=== PATIENT | female | born 1955 | race Caucasian/White ===

== ENCOUNTER 2017-08-11 18:34 | Observation (INO) | payer MEDICAID, SELFPAY ==
[2017-08-11] VITALS (7 sets, daily range): BP systolic 77–112; BP diastolic 29–89; PULSE 65–75; RESP 16–23; TEMP 36.3–36.4; O2SAT 94–99; BMI 23.1
--- NOTE | 2017-08-11 19:54 | RAD_ITS ---
XR Hip Unilateral with Pelvis when performed; 2-3 Views INDICATION: left hip pain after fall COMPARISON: None TECHNIQUE: Frontal view of the pelvis and 2 views of the left hip FINDINGS: The pelvis is intact and there is normal alignment of the SI joints and symphysis pubis. There is normal alignment at the left pelvis. A right total hip arthroplasty is noted. RAD/Hip 2-3 Views with Pelvis IMPRESSION: Pelvis and left hip are intact. Right total hip arthroplasty. at 1056 Reported and signed by: Lissa Stevens MD Electronically Signed: Lissa Stevens MD at 20:02 EDT Tel , Service support ,
--- NOTE | 2017-08-11 19:56 | ED.VISSUMM ---
- ER Visit Summary Date of Service: 08/11/17 Chief Complaint: Fall with left hip pain. History of Present Illness: The patient is a 62 F chronic pain management. Patient has a history of vertigo and has falls. She lost her balance yesterday fell in her left hip. Complaint hip pain. She has been up and ambulating.. She is on no blood thinners. He does have a history of cirrhosis and [id number] diabetes. Physical Examination: Elderly female no acute distress. Her blood pressure is low at 93/51 hours she is tolerating that well. She is afebrile. Pulse ox 90% on room air no signs of hypoxia. H EENT exam dry mucous members. Atraumatic. Face and scalp are nontender. C-spine nontender trachea midline. Lungs clear to auscultation bilaterally. Heart regular rhythm no murmur. Chest wall nontender. Abdomen soft nontender. Remedies moves all 4. Neurovascular intact. Mild p.o. P left buttock. No shortening no external rotation of the left hip. Normal range of motion. Both upper extremities right lower extremity unremarkable. Back exam nontender. Neurologically she is awake and alert with no focal motor deficits. Test Results: White count 9 H&H 1134 which is her baseline anemia. Electrolytes show CO2 of 20 normal anion gap of 14. BUN 59 creatinine at 3.24 which is significantly worse than her baseline of a normal creatinine of 1. Lactic acid 1. EKG sinus rhythm rate is 69 with no change from prior. Pelvis x-ray showed no acute fracture. Read both by myself the radiologist. Emergency Department Course and Treatment: Treated with IV fluids. Nurses were finally able to get obtain an IV in her left foot. She will be given 2 L of normal saline bolus. Treatment Plan: I spoke to the hospitalist will admit the patient for IV hydration and further evaluation of acute renal injury and dehydration. Disposition:admission Impression: Fall Acute hypotension Acute kidney injury with renal insufficiency with a creatinine of 3.24. Diarrhea Left hip contusion ED Disposition - Plan for ED Patient: Chief Complaint: Diarrhea Referrals: [facility] Doctor,Out of [NON-STAFF] -
--- NOTE | 2017-08-11 19:58 | EKG12_ITS ---
Test Reason : Blood Pressure : / mmHG Vent. Rate : 069 BPM Atrial Rate : 069 BPM P-R Int : 152 ms QRS Dur : 082 ms QT Int : 466 ms P-R-T Axes : 061 001 037 degrees QTc Int : 499 ms Normal sinus rhythm Prolonged QT Abnormal ECG Confirmed by MATTHIAS GAGE ([id number]), acquisitions editor EBONY LANCASTER ([id number] on 08/13/2017 2:22:01 PM Referred By: KEVYN Confirmed By:MATTHIAS GAGE
--- NOTE | 2017-08-11 20:43 | ED.RN ---
md aware of inability to obtain an iv or blood.rt notified of need for lab draws.
[2017-08-11 21:27] LABS: Absolute Lymphocyte Count 1.03 X10^3/ul (0.83-4.51); Basophil# 0.01 X10^3/uL; Basophil% 0.1 % (0-1); Eosinophil# 0.07 X10^3/uL; Eosinophils% 0.8 % (0-5); Hematocrit 34.3 % (37-47); Hemoglobin 11.2 g/dl (12.0-15.0); Lymphocyte # 1.03 X10^3/ul (4.0); Lymphocyte % 11.3 % (19-41); Mean Corp Hgb Conc 32.7 g/gl (32-36); Mean Corpuscular Hgb 26.7 pg (27.0-32.0); Mean Corpuscular Volume 81.9 fL (81-99); Mean Platelet Vol. 10.7 fl (6.2-12.0); Neutrophil # 6.98 X10^3/uL (2.7-7.7); Neutrophil % 76.5 % (47-70); Platelet Count 183 K/mm3 (150-450); RBC Distribution Width CV 15.7 % (11.6-14.6); RBC Distribution Width SD 46.1 fl (35.1-43.9); Red Blood Count 4.19 M/mm3 (4.2-5.4); White Blood Count 9.1 K/mm3 (4.4-11.0)
[2017-08-11 21:34] LABS: Differential Indicated SCAN CRITERIA MET; POSITIVE COUNT NO; POSITIVE DIFFERENTIAL NO; POSITIVE MORPHOLOGY YES
[2017-08-11 21:39] LABS: Anion Gap 14 (5-15); BUN 59 mg/dL (7-18); BUN/Creat Ratio 18.2 RATIO (10-20); Calcium,Total 7.9 mg/dL (8.5-10.1); Chloride 105 mmol/L (98-107); Creatinine, Serum 3.24 mg/dL (0.55-1.02); EST Glomerular Filtration Rate 15 mL/min (>60); Est Glom Filt Rate - Afr Amer 19 mL/min (>60); Estimated Creatinine Clearance 17.51 ml/min; Glucose 143 mg/dL (70-110); Potassium 3.5 mmol/L (3.5-5.1); Sodium Level 139 mmol/L (136-145)
[2017-08-11 22:17] LABS: Differential Comment SCANNED
--- NOTE | 2017-08-11 22:22 | ED.RN ---
md aware that the pt had a large emesis.
[2017-08-11] MEDS: 0.9% Normal Saline 1,000 ML 1000 ML IV (22:51)
[2017-08-12] VITALS (7 sets, daily range): BP systolic 97–110; BP diastolic 39–65; PULSE 73–86; RESP 16–18; TEMP 36.7–37.3; O2SAT 94–98; BMI 23.5
[2017-08-12 00:28] LABS: Magnesium 2.1 mg/dL (1.8-2.4); Phosphorus 5.4 mg/dL (2.5-4.9)
--- NOTE | 2017-08-12 01:08 | HP.PCM_ITS ---
Problem List (1) Diarrhea Status: Acute (2) ARF (acute renal failure) Status: Acute History of Present Illness Date of Admission: 08/12/17 Chief Complaint: found on floor The patient is a 62 year old F she reports she has pain in her left hip and left shoulder she reports she feel 2 days ago - she has vertigo she fell on the floor she reports stumbled down to left side she was found on the floor by her neighbor yesterday but she was able to get up with help ever since then she had pain in her left hip and left shoulder she did not hit her head, did not have chest pain, no sob. she reports pain in her left shoulder and left hip, Past Medical History Past Medical History (Chronic Problems): Chronic Problems Glaucoma (Chronic) Hypertension (Chronic) Type 2 diabetes mellitus (Chronic) COPD (chronic obstructive pulmonary disease) (Chronic) Depression (Chronic) Chronic pain (Chronic) Chronic back pain (Chronic) Allergies No Known Allergies Allergy (Verified 08/11/17 18:41) Home Medications: Ambulatory Orders Medication Instructions Recorded Clonazepam [Klonopin] 1 mg PO BID 11/21/13 Fluoxetine [Prozac] 40 mg PO DAILY 11/21/13 Metformin HCl [Glucophage] 1,000 mg PO BIDCM 11/21/13 Pregabalin [Lyrica] 150 mg PO BID 11/21/13 Quetiapine Fumarate [Seroquel] 400 mg PO QHS 11/21/13 Topiramate [Topamax] 25 mg PO DAILY 11/21/13 Diclofenac Sodium [Voltaren] 100 gm TOPICAL TID PRN 05/17/14 Albuterol Aerosols [Ventolin 2.5 mg INHALATION Q4H PRN PRN 01/23/15 Aerosols] BusPIRone [Buspar] 10 mg PO TID 01/23/15 CycloSPORINE Ophthalmic [Restasis 1 drop OPHTHALMIC QHS 01/23/15 Ophthalmic] Fluticasone/Salmeterol [Advair 1 puff INHALATION BID 01/23/15 250/50 Mcg Diskus] Methocarbamol [Robaxin-750] 750 mg PO BID 01/23/15 Fentanyl [Duragesic] 25 mcg TRANSDERM. Q72H 11/09/15 Fentanyl [Subsys] 1 each SL Q6H PRN PRN 11/09/15 Lisinopril/Hydrochlorothiazide 1 tablet PO DAILY 11/09/15 [Zestoretic 1012.5 Tablet] Tiotropium [place] [Spiriva 18 MCG] 1 puff INHALATION DAILY 11/09/15 Cyclobenzaprine [Flexeril] 10 mg PO TID 05/29/16 Doxycycline 100 mg PO BID #14 capsule 05/29/16 Lactulose 10 gm PO DAILY 05/29/16 Latanoprost 0.005% [Xalatan 1 drop EACH EYE QHS 05/29/16 Opthalmic] Magnesium Oxide [Magnesium] 400 mg PO DAILY 05/29/16 Moudntik 25 mg PO DAILY 05/29/16 Ranitidine [Zantac] 150 mg PO BID 05/29/16 Surgical History: appendectomy, cholecystectomy, hysterectomy, total hip arthroplasty, - - Surgery for bowel obstruction proximally 40 years ago. 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 Musculoskeletal: Reports: Joint Pain Skin: Denies: Rash Neurological: Reports: Balance problems Psychiatric: Reports: Anxiety Endocrine: Denies: Change in Body Habitus Hematologic/ Lymphatic: Denies: Adenopathy VTE Information - Inpt Only VTE Present on Admission: No Patient Problems: Active and Suspected Problems Diarrhea (Acute) ARF (acute renal failure) (Acute) - Physical Exam General: Alert, Oriented x3, - - somewhat giddy, laughing, follows commands well. HEENT: PERRLA Oral: Moist Mucosa Neck: Supple Lungs: No rhonchi, No wheeze, No rales Cardiovascular: Regular rate Abdomen: Soft, Non Tender, - - no cva tenderness Skin: No rashes Musculoskeletal: No Tenderness to Palpation of Joints or Extremities Neurological: Neuro grossly intact Psych/Mental Status: Irrational Behavior Vital Signs Temp Pulse Resp BP Pulse Ox 97.4 F 72 16 112/86 94 08/11/17 23:04 08/11/17 23:04 08/11/17 23:04 08/11/17 23:04 08/11/17 23:04 Oxygen Delivery Method Room Air Weight: 148 lb Body Mass Index (BMI) 23.1 Laboratory Tests Past 24 Hrs 08/11/17 08/11/17 08/11/17 21:10 21:10 21:10 WBC 9.1 RBC 4.19 L Hgb 11.2 L Hct 34.3 L MCV 81.9 MCH 26.7 L MCHC 32.7 RDW 15.7 H RDW Differential 46.1 H Plt Count 183 MPV 10.7 Immature Gran % (Auto) 0.300 Neut % (Auto) 76.5 H Lymph % (Auto) 11.3 L [place] % (Auto) 11.0 H Eos % (Auto) 0.8 Baso % (Auto) 0.1 Absolute Neuts (auto) 7.0 Absolute Lymphs (auto) 1.03 Total Counted Not Reportable Differential Comment SCANNED Sodium 139 Potassium 3.5 Chloride 105 Carbon Dioxide 20.0 L Anion Gap 14 BUN 59 H Creatinine 3.24 H Estim Creat Clear Calc 17.51 Est GFR (MDRD) Af Amer 19 L Est GFR (MDRD) Non-Af 15 L BUN/Creatinine Ratio 18.2 Glucose 143 H Lactic Acid 1.0 Calcium 7.9 L Phosphorus Magnesium 08/11/17 21:10 WBC RBC Hgb Hct MCV MCH MCHC RDW RDW Differential Plt Count MPV Immature Gran % (Auto) Neut % (Auto) Lymph % (Auto) [place] % (Auto) Eos % (Auto) Baso % (Auto) Absolute Neuts (auto) Absolute Lymphs (auto) Total Counted Differential Comment Sodium Potassium Chloride Carbon Dioxide Anion Gap BUN Creatinine Estim Creat Clear Calc Est GFR (MDRD) Af Amer Est GFR (MDRD) Non-Af BUN/Creatinine Ratio Glucose Lactic Acid Calcium Phosphorus 5.4 H Magnesium 2.1 Assessment/Plan Active and Suspected Problems Diarrhea (Acute) ARF (acute renal failure) (Acute) 62-year-old who reports difficulty with balance and vertigo at times and having nausea she reports she fell in her home had pain on the left side of her body and was down on the ground Actually found by her neighbor not right before coming in but 1 day before coming in Do not eat or drink much during that time Since then had problems ambulating and now presents with acute renal failure This is likely due to dehydration and poor p.o. intake #1 acute renal failure 2 patient reported diarrhea loose stools C. difficile and enteric pathogen panel will be ordered I am not aware that she has had any stools here in the emergency room Abdominal exam does not show any significant tenderness #3. Patient has a history of COPD we will give her as needed breathing treatment #4. Patient reported some nausea with the dizziness but currently she does not have any nausea or abdominal pain will resume p.o. diet #5 pain control She has a fentanyl patch on the back she says does not work Reported pain in multiple areas she has good mobility of all her joints on exam no specific areas of spinal tenderness likely soft tissue pain due to falling She did have x-rays of her pelvis and hips in the emergency room no sign of fractures continue her fentanyl patch provide her with other alternative pain control #6. We will continue her Klonopin and BuSpar for anxiety patient may have missed some of her Klonopin some of her additionally giddy behavior could mean that she might be withdrawing 1 dose of her Klonopin will be given now #7. Continue eyedrops for glaucoma #8. Cover with sliding scale insulin admission sugar is normal Patient will have her Metformin held due to the acute renal failure above
[2017-08-12] MEDS: 0.9% Normal Saline 1,000 ML 999 ML IV (02:58)
[2017-08-12] MEDS: clonazePAM 1 MG Tablet PO ×3 (03:58→21:48)
[2017-08-12] MEDS: 0.9% Normal Saline 1,000 ML 200 ML IV ×4 (05:18→22:41)
[2017-08-12] MEDS: 0.9% NaCl Peripheral Flush Adult/Peds IV (05:18)
[2017-08-12 07:36] LABS: Bedside Glucose 119 mg/dL (70-110)
--- NOTE | 2017-08-12 07:57 | PCM.PN.HOSP ---
Patient Problems: Active and Suspected Problems ARF (acute renal failure) (Acute) Diarrhea (Acute) Subjective: 62-year-old female past medical history of chronic pain, hypertension, anxiety disorder, psychiatric diagnoses including schizophrenia and bipolar admitted on 08/11/2017 with diarrhea and vomiting. History of recent fall at home with left hip contusion. Complains of pain in the left hip, no diarrhea since admission. Denied any fever or chills. Admits to not drinking enough water; sees I hate drinking water Objective: Physical Exam General: Alert, Oriented x3, not pale, no jaundice, appropriate affect HEENT: PERRLA Oral: Dry mucosa Neck: Supple Lungs: No rhonchi, No wheeze, No rales Cardiovascular: Regular rate Abdomen: Soft, Non Tender, bowel sounds present and normal Skin: No rashes Musculoskeletal: No Tenderness to Palpation of Joints or Extremities Neurological: Neuro grossly intact Psych/Mental Status: Reactive, appropriate affect Vitals/I&O's: Vital Signs Temp Pulse Resp BP Pulse Ox 98.6 F 73 18 97/39 95 08/12/17 03:33 08/12/17 03:33 08/12/17 03:33 08/12/17 03:33 08/12/17 07:20 Oxygen Delivery Method Room Air Weight: 68.1 kg Body Mass Index (BMI) 23.5 Intake and Output for Last 24 Hours 08/10/17 08/11/17 08/12/17 23:59 23:59 23:59 Intake Total 1507 Balance 1507 Laboratory Results 08/12/17 06:40: POC Glucose 119 H Current Medications Buspirone HCl (Buspar) 10 mg PO TID [facility] Last Admin: 08/12/17 05:18 Dose: 10 mg Clonazepam (Klonopin) 1 mg PO BID [facility] Cyclobenzaprine HCl (Flexeril) 10 mg PO TID PRN PRN Dextrose (D50w Syringe) 0 gm IV X1 PRN; Protocol PRN Reason: Hypoglycemia Famotidine (Pepcid) 20 mg PO BID [facility] Fentanyl (Duragesic) 25 mcg TRANSDERM. Q72H [facility] Fentanyl Citrate (Sublimaze) 50 mcg IV Q2H PRN PRN PRN Reason: PAIN Glucagon () 1 mg IM .X1 PRN PRN Reason: Hypoglycemia Sodium Chloride () 1,000 mls @ 200 mls/hr IV .Q5H [facility] Last Admin: 08/12/17 05:18 Dose: 200 mls/hr Influenza Virus Vaccine Quadrival (Fluarix/Fluzone) 0.5 ml IM .ONCE ONE Stop: 08/12/17 10:01 Insulin Aspart (Novolog Flexpen (Bkc)) 0 units SC ACHS [facility] PRN Reason: Protocol Last Admin: 08/12/17 06:52 Dose: Not Given Lactulose (Chronulac, Cephulac) 10 gm PO DAILY [facility] Latanoprost (Xalatan Opthalmic) 1 drop EACH EYE QHS [facility] Ondansetron HCl (Zofran) 4 mg IV Q6H PRN PRN PRN Reason: Nausea Pregabalin (Lyrica) 150 mg PO BID [facility] Quetiapine Fumarate (Seroquel) 400 mg PO QHS [facility] Sodium Chloride () 5 - 30 ml IV UD PRN PRN Reason: SALINE FLUSH Last Admin: 08/12/17 05:18 Dose: 10 ml Assessment/Plan Active and Suspected Problems ARF (acute renal failure) (Acute) Diarrhea (Acute) 1. Acute kidney injury due to dehydration/diarrhea, on IV fluids, admitting creatinine was 3.24, baseline creatinine is 1.05 ,repeat blood work, some of the kidneys and bladder 2. Recent history of diarrhea, resolved 3. COPD, not in acute exacerbation 4. Recurrent falls likely related to medication side effect versus orthostatic hypotension, on IV fluids, will check orthostatic vitals 5. Chronic pain syndrome, on fentanyl patch, Flexeril, Lyrica 6. Multiple psychiatric diagnoses including anxiety/depression/schizoaffective disorder, on Klonopin, BuSpar, Prozac, Seroquel, Topamax 7. Type 2 diabetes, metformin on hold on account of high, continues on sliding scale, check HbA1c 8. Left hip pain status post fall, history of the pelvis shows no fractures, continue on pain medication 9. DVT prophylaxis with heparin subcu
--- NOTE | 2017-08-12 08:01 | US_ITS ---
US Kidney(s) complete (eg, kidneys T bladder) INDICATION: ARF COMPARISON: None TECHNIQUE: Ultrasonographic grayscale, Doppler and duplex investigation of the retroperitoneum including kidneys and urinary bladder. FINDINGS: The right kidney measures 12.4 cm in length and is without evidence of hydronephrosis, cyst, or shadowing calculus. The left kidney measures 10 cm in length and is without evidence of hydronephrosis, cyst, or shadowing calculus. The urinary bladder is nondistended and contains 43 mL of urine at the time of the scan. US/Kidney and Bladder IMPRESSION: Negative retroperitoneal ultrasound. at 2005 Reported and signed by: Lissa Stevens MD Electronically Signed: Lissa Stevens MD at 19:04 EDT Tel , Service support ,
--- NOTE | 2017-08-12 08:05 | PN_ITS ---
Patient Problems: Active and Suspected Problems ARF (acute renal failure) (Acute) Diarrhea (Acute) Subjective: 62-year-old female past medical history of chronic pain, hypertension, anxiety disorder, psychiatric diagnoses including schizophrenia and bipolar admitted on 08/11/2017 with diarrhea and vomiting. History of recent fall at home with left hip contusion. Complains of pain in the left hip, no diarrhea since admission. Denied any fever or chills. Admits to not drinking enough water; sees I hate drinking water Objective: Physical Exam General: Alert, Oriented x3, not pale, no jaundice, appropriate affect HEENT: PERRLA Oral: Dry mucosa Neck: Supple Lungs: No rhonchi, No wheeze, No rales Cardiovascular: Regular rate Abdomen: Soft, Non Tender, bowel sounds present and normal Skin: No rashes Musculoskeletal: No Tenderness to Palpation of Joints or Extremities Neurological: Neuro grossly intact Psych/Mental Status: Reactive, appropriate affect Vitals/I&O's: Vital Signs Temp Pulse Resp BP Pulse Ox 98.6 F 73 18 97/39 95 08/12/17 03:33 08/12/17 03:33 08/12/17 03:33 08/12/17 03:33 08/12/17 07:20 Oxygen Delivery Method Room Air Weight: 68.1 kg Body Mass Index (BMI) 23.5 Intake and Output for Last 24 Hours 08/10/17 08/11/17 08/12/17 23:59 23:59 23:59 Intake Total 1507 Balance 1507 Laboratory Results 08/12/17 06:40: POC Glucose 119 H Current Medications Buspirone HCl (Buspar) 10 mg PO TID [facility] Last Admin: 08/12/17 05:18 Dose: 10 mg Clonazepam (Klonopin) 1 mg PO BID [facility] Cyclobenzaprine HCl (Flexeril) 10 mg PO TID PRN PRN Dextrose (D50w Syringe) 0 gm IV X1 PRN; Protocol PRN Reason: Hypoglycemia Famotidine (Pepcid) 20 mg PO BID [facility] Fentanyl (Duragesic) 25 mcg TRANSDERM. Q72H [facility] Fentanyl Citrate (Sublimaze) 50 mcg IV Q2H PRN PRN PRN Reason: PAIN Glucagon () 1 mg IM .X1 PRN PRN Reason: Hypoglycemia Sodium Chloride () 1,000 mls @ 200 mls/hr IV .Q5H [facility] Last Admin: 08/12/17 05:18 Dose: 200 mls/hr Influenza Virus Vaccine Quadrival (Fluarix/Fluzone) 0.5 ml IM .ONCE ONE Stop: 08/12/17 10:01 Insulin Aspart (Novolog Flexpen (Bkc)) 0 units SC ACHS [facility] PRN Reason: Protocol Last Admin: 08/12/17 06:52 Dose: Not Given Lactulose (Chronulac, Cephulac) 10 gm PO DAILY [facility] Latanoprost (Xalatan Opthalmic) 1 drop EACH EYE QHS [facility] Ondansetron HCl (Zofran) 4 mg IV Q6H PRN PRN PRN Reason: Nausea Pregabalin (Lyrica) 150 mg PO BID [facility] Quetiapine Fumarate (Seroquel) 400 mg PO QHS [facility] Sodium Chloride () 5 - 30 ml IV UD PRN PRN Reason: SALINE FLUSH Last Admin: 08/12/17 05:18 Dose: 10 ml Assessment/Plan Active and Suspected Problems ARF (acute renal failure) (Acute) Diarrhea (Acute) 1. Acute kidney injury due to dehydration/diarrhea, on IV fluids, admitting creatinine was 3.24, baseline creatinine is 1.05 ,repeat blood work, some of the kidneys and bladder 2. Recent history of diarrhea, resolved 3. COPD, not in acute exacerbation 4. Recurrent falls likely related to medication side effect versus orthostatic hypotension, on IV fluids, will check orthostatic vitals 5. Chronic pain syndrome, on fentanyl patch, Flexeril, Lyrica 6. Multiple psychiatric diagnoses including anxiety/depression/schizoaffective disorder, on Klonopin, BuSpar, Prozac, Seroquel, Topamax 7. Type 2 diabetes, metformin on hold on account of high, continues on sliding scale, check HbA1c 8. Left hip pain status post fall, history of the pelvis shows no fractures, continue on pain medication 9. DVT prophylaxis with heparin subcu
[2017-08-12] MEDS: Magnesium Oxide 400 MG Tablet PO (09:31)
[2017-08-12] MEDS: Famotidine 20 MG Tablet PO ×2 (09:31→21:51)
[2017-08-12] MEDS: Pregabalin 75 MG Capsule 150 MG PO ×2 (09:31→21:55)
[2017-08-12] MEDS: FLUoxetine 20 MG Capsule 40 MG PO (09:31)
--- NOTE | 2017-08-12 09:45 | NURSING ---
Called Dr. Mcdaniels's office, stated they will fax over med list.
--- NOTE | 2017-08-12 11:25 | CASEMGMT ---
Social Work In to see pt and pt requests that SW come back later as she states, I need to rest. SW to return at a later time. Isela Agosto, [employer]LLY[employer] SUPER[employer]UCATION
[2017-08-12 11:56] LABS: Bedside Glucose 179 mg/dL (70-110)
[2017-08-12] MEDS: Ipratropium 0.5 MG/2.5 ML SOLUTION INHALATION (13:19)
[2017-08-12] MEDS: Albuterol 2.5 MG/3 ML VIAL.NEB. INHALATION (13:19)
[2017-08-12 17:10] LABS: Bedside Glucose 168 mg/dL (70-110)
[2017-08-12] MEDS: Budesonide Respules 0.5 MG/2 ML AMPUL.NEB. INHALATION (19:04)
[2017-08-12] MEDS: Ipratropium/Albuterol Sulfate 3 ML AMPUL.NEB INHALATION (19:04)
[2017-08-12] MEDS: Latanoprost 0.005% 1 Bottle 1 DRP EACH EYE (21:50)
[2017-08-12] MEDS: QUEtiapine 100 MG Tablet 400 MG PO (21:51)
[2017-08-12] MEDS: Topiramate 25 MG Tablet PO (21:51)
[2017-08-12 22:41] LABS: Bedside Glucose 200 mg/dL (70-110)
[2017-08-13 02:48] VITALS: BP 104/58; PULSE 74; RESP 20; TEMP 36.9; O2SAT 96
[2017-08-13] MEDS: 0.9% Normal Saline 1,000 ML 200 ML IV (04:27)
[2017-08-13 06:15] LABS: Bedside Glucose 148 mg/dL (70-110)
[2017-08-13 06:55] VITALS: PULSE 120; RESP 20; O2SAT 93
[2017-08-13] MEDS: Ipratropium/Albuterol Sulfate 3 ML AMPUL.NEB INHALATION (06:55)
[2017-08-13] MEDS: Budesonide Respules 0.5 MG/2 ML AMPUL.NEB. INHALATION (06:55)
--- NOTE | 2017-08-13 07:26 | NURSING ---
fentanyl 25mcg patch removed from patient's lower back as order discontinued at patient's request. MICHELLE Amaya witnessed flushing patch down toilet.
--- NOTE | 2017-08-13 08:06 | PN_ITS ---
Patient Problems: Active and Suspected Problems ARF (acute renal failure) (Acute) Diarrhea (Acute) Subjective: Patient seen and examined. Complains of pain in her left hip and low back. Moving out of bed much. Been on IV fluids. Denies any fever or chills. Does not want to have fentanyl patch because she feels that is not helping. Objective: Physical Exam General: Alert, Oriented x3, not pale, no jaundice, appropriate affect HEENT: PERRLA Oral: Moist mucosa Neck: Supple Lungs: No rhonchi, No wheeze, No rales Cardiovascular: Regular rate Abdomen: Soft, Non Tender, bowel sounds present and normal Skin: No rashes Musculoskeletal: Tenderness over the left hip otherwise normal Neurological: Neuro grossly intact Psych/Mental Status: Reactive, appropriate affect Vitals/I&O's: Vital Signs Temp Pulse Resp BP Pulse Ox 98.5 F 120 20 104/58 93 08/13/17 02:48 08/13/17 06:55 08/13/17 06:55 08/13/17 02:48 08/13/17 06:55 Oxygen Delivery Method Room Air Weight: 68.1 kg Body Mass Index (BMI) 23.5 Intake and Output for Last 24 Hours 08/11/17 08/12/17 08/13/17 23:59 23:59 23:59 Intake Total 4247 2975 Output Total 1050 Balance 4247 1925 Microbiology Past 72 Hours 08/12/17 09:30 Stool C. difficile DNA Amplification - Final Laboratory Results 08/12/17 09:40: Sodium Cancelled, Potassium Cancelled, Chloride Cancelled, Carbon Dioxide Cancelled, Anion Gap Cancelled, BUN Cancelled, Creatinine Cancelled, Estim Creat Clear Calc Cancelled, Est GFR (MDRD) Af Amer Cancelled, Est GFR (MDRD) Non-Af Cancelled, BUN/Creatinine Ratio Cancelled, Glucose Cancelled, Calcium Cancelled, Troponin I Cancelled 08/12/17 11:52: POC Glucose 179 H 08/12/17 17:02: POC Glucose 168 H 08/12/17 21:44: POC Glucose 200 H 08/13/17 06:09: POC Glucose 148 H 08/13/17 07:20: Urine Color Pending, Urine Clarity Pending, Urine pH Pending, Ur Specific Ulen Pending, Urine Protein Pending, Urine Glucose (UA) Pending, Urine Ketones Pending, Urine Occult Blood Pending, Urine Nitrite Pending, Urine Bilirubin Pending, Urine Urobilinogen Pending, Ur Leukocyte Esterase Pending Current Medications Albuterol Sulfate (Ventolin Aerosols) 2.5 mg INHALATION Q4H PRN PRN PRN Reason: SOB &/OR WHEEZING Albuterol/Ipratropium (Duoneb) 3 ml INHALATION Q6HWA.RT [facility] Last Admin: 08/13/17 06:55 Dose: 3 ml Budesonide (Pulmicort Aerosol) 0.5 mg INHALATION Q12H.RT [facility] Last Admin: 08/13/17 06:55 Dose: 0.5 mg Buspirone HCl (Buspar) 10 mg PO TID [facility] Last Admin: 08/13/17 06:27 Dose: 10 mg Clonazepam (Klonopin) 1 mg PO BID [facility] Last Admin: 08/12/17 21:48 Dose: 1 mg Cyclobenzaprine HCl (Flexeril) 10 mg PO TID PRN PRN Last Admin: 08/12/17 19:59 Dose: 10 mg Cyclosporine (Restasis Ophthalmic) 1 drop OPHTHALMIC QHS [facility] Dextrose (D50w Syringe) 0 gm IV X1 PRN; Protocol PRN Reason: Hypoglycemia Famotidine (Pepcid) 20 mg PO BID [facility] Last Admin: 08/12/17 21:51 Dose: 20 mg Fluoxetine HCl (Prozac) 40 mg PO DAILY [facility] Last Admin: 08/12/17 09:31 Dose: 40 mg Glucagon () 1 mg IM .X1 PRN PRN Reason: Hypoglycemia Heparin Sodium (Porcine) () 5,000 units SC BID [facility] Last Admin: 08/12/17 21:47 Dose: Not Given Sodium Chloride () 1,000 mls @ 200 mls/hr IV .Q5H [facility] Last Admin: 08/13/17 04:27 Dose: 200 mls/hr Insulin Aspart (Novolog Flexpen (Bkc)) 0 units SC ACHS [facility] PRN Reason: Protocol Last Admin: 08/13/17 06:27 Dose: Not Given Latanoprost (Xalatan Opthalmic) 1 drop EACH EYE QHS [facility] Last Admin: 08/12/17 21:50 Dose: 1 unit Magnesium Oxide (Mag-Ox 400) 400 mg PO DAILY [facility] Last Admin: 08/12/17 09:31 Dose: 400 mg Ondansetron HCl (Zofran) 4 mg IV Q6H PRN PRN PRN Reason: Nausea Pregabalin (Lyrica) 150 mg PO BID [facility] Last Admin: 08/12/17 21:55 Dose: 150 mg Quetiapine Fumarate (Seroquel) 400 mg PO QHS [facility] Last Admin: 08/12/17 21:51 Dose: 400 mg Sodium Chloride () 5 - 30 ml IV UD PRN PRN Reason: SALINE FLUSH Last Admin: 08/12/17 05:18 Dose: 10 ml Topiramate (Topamax) 25 mg PO DAILY@2200 [facility] Last Admin: 08/12/17 21:51 Dose: 25 mg Assessment/Plan Active and Suspected Problems ARF (acute renal failure) (Acute) Diarrhea (Acute) 62-year-old female with past medical history of chronic pain, hypertension, anxiety disorder, multiple psychiatric diagnoses including schizophrenia and bipolar admitted on 08/11/2017 with diarrhea and vomiting. No diarrhea or vomiting noted since being admitted. History of recurrent falls; Recent fall at home with left hip contusion. X-rays of the pelvis and hip done in the ER were negative. 1. Acute kidney injury due to dehydration/recent diarrhea, admitting creatinine was 3.24, creatinine is back to normal. ultrasound of kidney and bladder was normal, continue IV fluids at 50 cc/min, encouraged to taking liberal fluids 2. Recurrent falls likely related to medication side effect versus orthostatic hypotension, on IV fluids, will recheck orthostatic hypotension 3. COPD, not in acute exacerbation 4. Chronic pain syndrome, on fentanyl patch, Flexeril, Lyrica 5. Multiple psychiatric diagnoses including anxiety/depression/schizoaffective disorder, on Klonopin, BuSpar, Prozac, Seroquel, Topamax 6. Type 2 diabetes, metformin on hold on account of WILFREDO, on sliding scale, HbA1c is pending, will start on tradjenta. 7. Left hip pain status post fall, history of the pelvis shows no fractures, continue on pain medication 8. DVT prophylaxis with heparin subcu 9. Disposition: Waiting on PT and OT evaluation to determine disposition
[2017-08-13 08:11] LABS: Color, Urine Yellow (Yellow); Glucose, Dipstick Normal (Normal); Ketone-Dipstick Negative (Negative); Leukocyte Esterase-Dipstick 25 /ul (Negative); Nitrite-Dipstick Negative (Negative); Occult Blood-Urine Negative /ul (Negative); Protein-Dipstick Negative (Negative); Urine Bilirubin Dipstick Negative (Negative); Urine Clarity Clear (Clear); Urine Urobilinogen Normal (Normal)
[2017-08-13 08:30] LABS: Absolute Lymphocyte Count 1.48 X10^3/ul (0.83-4.51); Basophil# 0.01 X10^3/uL; Basophil% 0.3 % (0-1); Eosinophil# 0.08 X10^3/uL; Eosinophils% 2.1 % (0-5); Hematocrit 28.1 % (37-47); Lymphocyte # 1.48 X10^3/ul (4.0); Lymphocyte % 38.3 % (19-41); Mean Corpuscular Hgb 26.6 pg (27.0-32.0); Mean Corpuscular Volume 83.1 fL (81-99); Mean Platelet Vol. 10.5 fl (6.2-12.0); Monocyte# 0.31 X10^3/uL; Neutrophil # 1.96 X10^3/uL (2.7-7.7); Neutrophil % 50.8 % (47-70); Platelet Count 104 K/mm3 (150-450); RBC Distribution Width CV 16.1 % (11.6-14.6); RBC Distribution Width SD 48.7 fl (35.1-43.9); Red Blood Count 3.38 M/mm3 (4.2-5.4); White Blood Count 3.9 K/mm3 (4.4-11.0)
[2017-08-13 08:31] LABS: POSITIVE COUNT NO; POSITIVE DIFFERENTIAL NO; POSITIVE MORPHOLOGY NO
[2017-08-13 08:41] LABS: International Normalized Ratio 1.1; Prothrombin Time (Protime)PT. 13.8 SECONDS (11.7-14.9)
[2017-08-13 08:42] LABS: Partial Thromboplast Time 31.4 Seconds (24.1-36.2)
[2017-08-13 08:50] LABS: ALB/GLOB Ratio 0.5 RATIO (0.9-2.4); AST(SGOT) 146 U/L (15-37); Alanine Aminotransfer ALT/SGPT 84 U/L (12-78); Alkaline Phosphatase 85 U/L (45-117); Anion Gap 8 (5-15); BUN 25 mg/dL (7-18); BUN/Creat Ratio 30.9 RATIO (10-20); Calcium,Total 7.2 mg/dL (8.5-10.1); Chloride 109 mmol/L (98-107); Creatinine, Serum 0.81 mg/dL (0.55-1.02); EST Glomerular Filtration Rate 76 mL/min (>60); Est Glom Filt Rate - Afr Amer 92 mL/min (>60); Estimated Creatinine Clearance 70.03 ml/min; Globulin 3.9 g/dL (2.3-3.5); Glucose 138 mg/dL (70-110); Potassium 3.1 mmol/L (3.5-5.1); Protein, Total 5.9 g/dL (6.4-8.2); Sodium Level 141 mmol/L (136-145)
[2017-08-13 09:10] LABS: Anion Gap 8 (5-15); BUN 25 mg/dL (7-18); BUN/Creat Ratio 30.4 RATIO (10-20); Calcium,Total 7.4 mg/dL (8.5-10.1); Chloride 109 mmol/L (98-107); Creatinine, Serum 0.82 mg/dL (0.55-1.02); EST Glomerular Filtration Rate 75 mL/min (>60); Est Glom Filt Rate - Afr Amer 90 mL/min (>60); Estimated Creatinine Clearance 69.17 ml/min; Glucose 137 mg/dL (70-110); Potassium 3.1 mmol/L (3.5-5.1); Sodium Level 141 mmol/L (136-145)
[2017-08-13] MEDS: FLUoxetine 20 MG Capsule 40 MG PO (09:10)
[2017-08-13] MEDS: Pregabalin 75 MG Capsule 150 MG PO (09:10)
[2017-08-13] MEDS: clonazePAM 1 MG Tablet PO (09:10)
[2017-08-13] MEDS: Magnesium Oxide 400 MG Tablet PO (09:11)
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
[2017-08-13] MEDS: Pantoprazole Sodium 40 MG Tablet PO (09:16)
[2017-08-13 09:27] VITALS: BP 137/64; PULSE 73; RESP 18; TEMP 36.5; O2SAT 97
--- NOTE | 2017-08-13 09:43 | CASEMGMT ---
Social Work Call from Jeniffer at [facility] stating that the pt has a nurse 2x/week and an aide 3x/week. P: [phone] and F: [phone]. Green sheet placed on chart in anticipation of weekend discharge. Faxed initial referral with order for [facility] and updated of anticipated weekend discharge. SW to continue to follow and assist as needed. Plan: Home with [facility]. Isela Agosto MSW CARE ASSOCIATE
[2017-08-13] MEDS: Methimazole 5 MG Tablet 10 MG PO (10:35)
[2017-08-13 11:36] LABS: Bedside Glucose 179 mg/dL (70-110)
--- NOTE | 2017-08-13 11:45 | CASEMGMT ---
Social Work Call from physician with concerns of her returning home d/t hx of falls and coming to the ED with left sided weakness. Inform that pt did not want to go to SNF, but SW will revisit topic. In to speak with pt and she declines SNF placement. Offer to setup PT/OT through her home health care services and she declines. Pt becomes rude throughout conversation and SW addresses this with the pt. Pt begins yelling at SW and stating to, just set it up, you're going to do whatever ya want anyways. Inform the pt that SW cannot setup without her consent, because it is her decision. Pt again declines. Becomes tearful and states that when she broke her leg there were too many people in her home and they walked around like they owned the place. Discuss that SW will ensure that her current services are restarted and pt again begins raising her voice, that's already been done, I don't need your help. Educate the pt that although her agency intends on taking her back there are certain orders that need placed by the hospital before they can be resumed. Leave pt to eat her lunch. Green sheet will be left on chart for resumption of home care services at discharge. NICKY Heredia BID MANAGER
[2017-08-13] MEDS: 0.9% Normal Saline 1,000 ML 75 ML IV (12:21)
[2017-08-13 13:16] LABS: Hemoglobin A1c 6.4 % (4.2-6.3)
[2017-08-13 14:08] VITALS: BP 124/65; PULSE 77; RESP 20; TEMP 37.1; O2SAT 95
[2017-08-13] MEDS: LINAGLIPTIN 5 MG TABLET PO (14:49)
--- NOTE | 2017-08-13 15:19 | PCM.DC ---
- Discharge Diagnoses Current Active Problems: Current Active and Chronic Problems ARF (acute renal failure) (Acute) Diarrhea (Acute) Reason(s) for Visit for Discharge Instructions: Fall with left hip pain You will use the following diet at home:: Calorie/Carbohydrate Controlled (specify 1200, 1400, etc), Cardiac Your food should be the consistency of: Regular Your liquids should be the consistency of: Regular/Thin Discharge Activity: Return to Normal Activity Additional Instructions: Please make sure that you are drinking lots of water. Allergies/Adverse Reactions: Allergies No Known Allergies Allergy (Verified 08/11/17 18:41) Medications to take at Discharge Clonazepam [Klonopin] 1 mg PO BID 11/21/13 Fluoxetine [Prozac] 40 mg PO DAILY 11/21/13 Pregabalin [Lyrica] 150 mg PO BID 11/21/13 Quetiapine Fumarate [Seroquel] 400 mg PO QHS 11/21/13 Topiramate [Topamax] 25 mg PO DAILY 11/21/13 Diclofenac Sodium [Voltaren] 100 gm TOPICAL BID 05/17/14 Albuterol Aerosols [Ventolin Aerosols] 2.5 mg INHALATION Q4H PRN PRN 01/23/15 BusPIRone [Buspar] 10 mg PO TID 01/23/15 CycloSPORINE Ophthalmic [Restasis Ophthalmic] 1 drop OPHTHALMIC BID 01/23/15 Fluticasone/Salmeterol [Advair 250/50 Mcg Diskus] 1 puff INHALATION BID 01/23/15 Methocarbamol [Robaxin-750] 750 mg PO BID 01/23/15 Fentanyl [Duragesic] 25 mcg TRANSDERM. Q72H 11/09/15 Tiotropium [place] [Spiriva 18 MCG] 1 puff INHALATION DAILY 11/09/15 Lactulose 10 gm PO DAILY 05/29/16 Latanoprost 0.005% [Xalatan Opthalmic] 1 drop EACH EYE QHS 05/29/16 Magnesium Oxide [Magnesium] 400 mg PO DAILY 05/29/16 Moudntik 25 mg PO DAILY 05/29/16 Haloperidol [Haldol] 2 mg PO QHS PRN PRN 08/12/17 Melatonin 8 mg PO QHS 08/12/17 Methimazole 10 mg PO DAILY 08/12/17 Omeprazole [Prilosec] 40 mg PO DAILY 08/12/17 Ondansetron [Zofran] 8 mg PO Q8H PRN PRN 08/12/17 Zolpidem Tartrate [Ambien] 10 mg PO QHS 08/12/17 Linagliptin [Tradjenta] 5 mg PO DAILY #30 tablet 08/13/17 The following prescriptions were given: Linagliptin [Tradjenta] 5 mg PO DAILY #30 tablet Orders to be completed after discharge: Basic Metabolic Profile (BMP) Time Frame: 3 Days, Location: Determined By Patient Primary Care Physician: [facility] Doctor,Out of [NON-STAFF] - Please follow up with your Primary Care Physician in: within 1 week to have blood work done Proposed Discharge Date: 08/13/17
--- NOTE | 2017-08-13 15:23 | DCINST_ITS ---
- Discharge Diagnoses Current Active Problems: Current Active and Chronic Problems ARF (acute renal failure) (Acute) Diarrhea (Acute) Reason(s) for Visit for Discharge Instructions: Fall with left hip pain You will use the following diet at home:: Calorie/Carbohydrate Controlled ( specify 1200, 1400, etc), Cardiac Your food should be the consistency of: Regular Your liquids should be the consistency of: Regular/Thin Discharge Activity: Return to Normal Activity Additional Instructions: Please make sure that you are drinking lots of water. Allergies/Adverse Reactions: Allergies No Known Allergies Allergy (Verified 08/11/17 18:41) Medications to take at Discharge Clonazepam [Klonopin] 1 mg PO BID 11/21/13 Fluoxetine [Prozac] 40 mg PO DAILY 11/21/13 Pregabalin [Lyrica] 150 mg PO BID 11/21/13 Quetiapine Fumarate [Seroquel] 400 mg PO QHS 11/21/13 Topiramate [Topamax] 25 mg PO DAILY 11/21/13 Diclofenac Sodium [Voltaren] 100 gm TOPICAL BID 05/17/14 Albuterol Aerosols [Ventolin Aerosols] 2.5 mg INHALATION Q4H PRN PRN 01/23/15 BusPIRone [Buspar] 10 mg PO TID 01/23/15 CycloSPORINE Ophthalmic [Restasis Ophthalmic] 1 drop OPHTHALMIC BID 01/23/15 Fluticasone/Salmeterol [Advair 250/50 Mcg Diskus] 1 puff INHALATION BID Methocarbamol [Robaxin-750] 750 mg PO BID 01/23/15 Fentanyl [Duragesic] 25 mcg TRANSDERM. Q72H 11/09/15 Tiotropium [place] [Spiriva 18 MCG] 1 puff INHALATION DAILY 11/09/15 Lactulose 10 gm PO DAILY 05/29/16 Latanoprost 0.005% [Xalatan Opthalmic] 1 drop EACH EYE QHS 05/29/16 Magnesium Oxide [Magnesium] 400 mg PO DAILY 05/29/16 Moudntik 25 mg PO DAILY 05/29/16 Haloperidol [Haldol] 2 mg PO QHS PRN PRN 08/12/17 Melatonin 8 mg PO QHS 08/12/17 Methimazole 10 mg PO DAILY 08/12/17 Omeprazole [Prilosec] 40 mg PO DAILY 08/12/17 Ondansetron [Zofran] 8 mg PO Q8H PRN PRN 08/12/17 Zolpidem Tartrate [Ambien] 10 mg PO QHS 08/12/17 Linagliptin [Tradjenta] 5 mg PO DAILY #30 tablet 08/13/17 The following prescriptions were given: Linagliptin [Tradjenta] 5 mg PO DAILY #30 tablet Orders to be completed after discharge: Basic Metabolic Profile (BMP) Time Frame: 3 Days, Location: Determined By Patient Primary Care Physician: [facility] Doctor,Out of [NON-STAFF] - Please follow up with your Primary Care Physician in: within 1 week to have blood work done Proposed Discharge Date: 08/13/17
--- NOTE | 2017-08-13 15:23 | PCM.DC.SUM ---
Discharge Date and Diagnosis - Problem List Patient Problems: Active and Suspected Problems ARF (acute renal failure) (Acute) Diarrhea (Acute) Date of Admission: 08/12/17 Date of Discharge: 08/13/17 - Primary Discharge Diagnosis Active and Suspected Problems ARF (acute renal failure) (Acute) Diarrhea (Acute) - Secondary Discharge Diagnosis Chronic Problems COPD (chronic obstructive pulmonary disease) (Chronic) Chronic back pain (Chronic) Chronic pain (Chronic) Depression (Chronic) Glaucoma (Chronic) Hypertension (Chronic) Type 2 diabetes mellitus (Chronic) Hospital Course and Treatment Imaging Results: Clinical Impression(s) from Imaging Studies Renal Ultrasound 08/12/17 08:01 IMPRESSION: Negative retroperitoneal ultrasound. at 2005 Reported and signed by: Lissa Stevens MD Electronically Signed: Lissa Stevens MD at 19:04 EDT Tel , Service support , None Operations: None Procedures: None Summary of Care Provided: 62-year-old female with past medical history of chronic pain, hypertension, anxiety disorder, multiple psychiatric diagnoses including schizophrenia and bipolar admitted on 08/11/2017 with diarrhea and vomiting. No diarrhea or vomiting noted since being admitted. History of recurrent falls; Recent fall at home with left hip contusion. X-rays of the pelvis and hip done in the ER were negative. 1. Acute kidney injury due to dehydration/recent diarrhea, admitting creatinine was 3.24, creatinine is back to normal. ultrasound of kidney and bladder was normal,will need to continue to hydrate herself. Follow-up with PCP to have repeat blood work done in 3 days 2. Recurrent falls likely related to medication side effect /orthostatic hypotension from dehydration 3. COPD, not in acute exacerbation 4. Chronic pain syndrome, on fentanyl patch, Lyrica. Medication changes with help from Pharmacy; Flexeril has been stopped. 5. Multiple psychiatric diagnoses including anxiety/depression/schizoaffective disorder, on Klonopin, BuSpar, Prozac, Seroquel, Topamax 6. Type 2 diabetes, metformin on hold on account of WILFREDO, on sliding scale, started on tradjenta. 7. Left hip pain status post fall, secondary to contusion,history of the pelvis shows no fractures, patient refusing subacute care. 8. DVT prophylaxis with heparin subcu Discharge Diet: 1999 Calorie Control Diet, 2000 mg Sodium Diet Discharge Activity: Return to Normal Activity Home Medications: Medications to take at Discharge Clonazepam [Klonopin] 1 mg PO BID 11/21/13 Fluoxetine [Prozac] 40 mg PO DAILY 11/21/13 Pregabalin [Lyrica] 150 mg PO BID 11/21/13 Quetiapine Fumarate [Seroquel] 400 mg PO QHS 11/21/13 Topiramate [Topamax] 25 mg PO DAILY 11/21/13 Diclofenac Sodium [Voltaren] 100 gm TOPICAL BID 05/17/14 Albuterol Aerosols [Ventolin Aerosols] 2.5 mg INHALATION Q4H PRN PRN 01/23/15 BusPIRone [Buspar] 10 mg PO TID 01/23/15 CycloSPORINE Ophthalmic [Restasis Ophthalmic] 1 drop OPHTHALMIC BID 01/23/15 Fluticasone/Salmeterol [Advair 250/50 Mcg Diskus] 1 puff INHALATION BID 01/23/15 Methocarbamol [Robaxin-750] 750 mg PO BID 01/23/15 Fentanyl [Duragesic] 25 mcg TRANSDERM. Q72H 11/09/15 Tiotropium [place] [Spiriva 18 MCG] 1 puff INHALATION DAILY 11/09/15 Lactulose 10 gm PO DAILY 05/29/16 Latanoprost 0.005% [Xalatan Opthalmic] 1 drop EACH EYE QHS 05/29/16 Magnesium Oxide [Magnesium] 400 mg PO DAILY 05/29/16 Moudntik 25 mg PO DAILY 05/29/16 Haloperidol [Haldol] 2 mg PO QHS PRN PRN 08/12/17 Melatonin 8 mg PO QHS 08/12/17 Methimazole 10 mg PO DAILY 08/12/17 Omeprazole [Prilosec] 40 mg PO DAILY 08/12/17 Ondansetron [Zofran] 8 mg PO Q8H PRN PRN 08/12/17 Zolpidem Tartrate [Ambien] 10 mg PO QHS 08/12/17 Linagliptin [Tradjenta] 5 mg PO DAILY #30 tablet 08/13/17 Following Prescrptions Were Given to Patient: Linagliptin [Tradjenta] 5 mg PO DAILY #30 tablet Other Amb Orders: Basic Metabolic Profile (BMP) Time Frame: 3 Days, Location: Determined By Patient Primary Care Physician: [facility] Doctor,Out of [NON-STAFF] - Please follow up with your Primary Care Physician in: within 1 week to have blood work done Additional Instructions: Please continue to drink a lot of water Pending Tests Upon Discharge: BMP in 3 days with her PCP Disposition: Home with Home Health Minutes spent on discharge:: 25 Patient Condition:: Stable Meaningful Use Info Meaningful Use Diagnoses (Choose all that apply): None applicable
[2017-08-13 16:01] LABS: Bedside Glucose 201 mg/dL (70-110)
[2017-08-13 17:44] VITALS: PULSE 87; RESP 20
[2017-08-13] MEDS: Albuterol 2.5 MG/3 ML VIAL.NEB. INHALATION (17:44)
== END 2017-08-13 18:06 | disposition home health service (06) | DRG 469 ==
LOC: ED 04-30 07:41 → MS3 04-30 10:39
PROVIDERS: Admitting Provider Internal Medicine; Emergency Provider Emergency Medicine; Visit Provider Internal Medicine
DX: N17.9 Acute kidney failure, unspecified (principal); F25.9 Schizoaffective disorder, unspecified; F31.9 Bipolar disorder, unspecified; J44.9 Chronic obstructive pulmonary disease, unspecified; E11.9 Type 2 diabetes mellitus without complications; Z23 Encounter for immunization; Z79.899 Other long term (current) drug therapy; Z79.84 Long term (current) use of oral hypoglycemic drugs; Z79.51 Long term (current) use of inhaled steroids; I95.1 Orthostatic hypotension; S70.02XA Contusion of left hip, initial encounter; W19.XXXA Unspecified fall, initial encounter; Y92.39 Other specified sports and athletic area as the place of occurrence of the external cause; R19.7 Diarrhea, unspecified; I10 Essential (primary) hypertension; F41.9 Anxiety disorder, unspecified; F17.210 Nicotine dependence, cigarettes, uncomplicated; H40.9 Unspecified glaucoma; R29.6 Repeated falls
CPT/HCPCS: 80048; 90686; 73502; 76770; 80053; 81002; 82962; 83036; 83605; 83735; 84100; 84484; 85025; 85610; 85730; 86850; 86900; 87493; 93005; 94640; 96361; 96374; 97116; 97162; 97166; 97530; 99218; 99283; 99406; J7030; A4216; G0378

== ENCOUNTER 2018-01-07 17:53 | Emergency (ER) | payer MEDICAID, SELFPAY ==
[2018-01-07 17:53] VITALS: BMI 25.5
[2018-01-07 17:58] VITALS: BP 141/76; PULSE 87; RESP 20; TEMP 36.7; O2SAT 99
[2018-01-07 18:05] VITALS: BP 145/81; PULSE 87; RESP 20; O2SAT 98
--- NOTE | 2018-01-07 18:16 | CT_ITS ---
STUDY: CT ABDOMEN AND PELVIS WITHOUT CONTRAST REASON FOR EXAM: Female, 63 years old. Pain. Bloating. Bowel obstruction. RADIATION DOSAGE (If Supplied By Facility): CTDIvol = ( 10.38 ) mGy, DLP = ( 521.06 ) mGycm TECHNIQUE: Transaxial images were obtained from the dome of the diaphragm to the symphysis pubis with oral contrast, and without intravenous contrast. Sagittal and coronal images were reconstructed. Individualized dose optimization techniques were used for this CT. COMPARISON: 11/09/2015. FINDINGS: The visualized lung bases are unremarkable. The visualized portions of the heart are within normal limits. There is hepatomegaly with diffuse hepatic enlargement. There are surgical clips in the gallbladder fossa consistent with a prior cholecystectomy. There is moderate splenomegaly. Normal pancreas. Normal bilateral adrenal glands. No acute abnormality of the kidneys. Small cortical scars of the right kidney. Extensive scarring of the left kidney. These findings are stable. No definite stones. No hydronephrosis. Normal visualized stomach. Normal small intestine. Moderate fecal retention. Otherwise normal colon. The appendix is visualized and appears normal. Normal abdominal aorta. Normal inferior vena cava. Normal retroperitoneum. Normal urinary bladder. There is absence of the uterus consistent with a prior hysterectomy. Normal abdominal wall. There are diffuse degenerative changes of the visualized lumbar spine. CT/Abdomen/Pel W ORAL Cont Only IMPRESSION: There is no definite acute abnormality. There is hepatosplenomegaly which was present previously. No evidence for bowel obstruction. Electronically Signed: Hu De Souza MD at 21:07 EST , Service support ,
[2018-01-07 18:27] LABS: Absolute Lymphocyte Count 1.11 X10^3/ul (0.83-4.51); Absolute Neutrophil Count 3.4 X10^3/uL (2.0-7.7); Basophil# 0.01 X10^3/uL; Basophil% 0.2 % (0-1); Hematocrit 34.3 % (37-47); Hemoglobin 11.1 g/dl (12.0-15.0); Lymphocyte # 1.11 X10^3/ul (4.0); Lymphocyte % 21.9 % (19-41); Mean Corp Hgb Conc 32.4 g/gl (32-36); Mean Corpuscular Volume 83.5 fL (81-99); Mean Platelet Vol. 11.3 fl (6.2-12.0); Monocyte# 0.43 X10^3/uL; Monocyte% 8.5 % (0-10); Neutrophil # 3.38 X10^3/uL (2.7-7.7); Neutrophil % 66.6 % (47-70); Platelet Count 115 K/mm3 (150-450); RBC Distribution Width CV 15.3 % (11.6-14.6); RBC Distribution Width SD 46.6 fl (35.1-43.9); Red Blood Count 4.11 M/mm3 (4.2-5.4); White Blood Count 5.1 K/mm3 (4.4-11.0)
[2018-01-07 18:28] LABS: POSITIVE COUNT NO; POSITIVE DIFFERENTIAL NO; POSITIVE MORPHOLOGY NO
[2018-01-07 18:42] LABS: AST(SGOT) 129 U/L (15-37); Alanine Aminotransfer ALT/SGPT 160 U/L (13-56); Albumin, Serum 2.8 g/dL (3.2-5.0); Alkaline Phosphatase 123 U/L (45-117); Anion Gap 9 (5-15); BUN 19 mg/dL (7-18); BUN/Creat Ratio 16.4 RATIO (10-20); Bilirubin, Direct 0.13 mg/dL (0.00-0.30); Calcium,Total 7.8 mg/dL (8.5-10.1); Chloride 105 mmol/L (98-107); Creatinine, Serum 1.16 mg/dL (0.55-1.02); EST Glomerular Filtration Rate 50 mL/min (>60); Est Glom Filt Rate - Afr Amer 61 mL/min (>60); Estimated Creatinine Clearance 48.27 ml/min; Glucose 344 mg/dL (74-106); Lipase 308 U/L (73-393); Potassium 4.4 mmol/L (3.5-5.1); Protein, Total 7.8 g/dL (6.4-8.2); Sodium Level 136 mmol/L (136-145)
[2018-01-07] MEDS: 0.9% Normal Saline 1,000 ML 1000 ML IV (18:45)
[2018-01-07 18:47] LABS: Bacteria 0 SEEN /hpf (None Seen); Mucous, Urine 0 SEEN /hpf (<or=2+); Red Blood Cells-Urine 0 SEEN /hpf (0-5); White Blood Cells 0 SEEN /hpf (0-5)
[2018-01-07 18:48] VITALS: BP 154/84; PULSE 88; RESP 16; O2SAT 96
[2018-01-07 19:01] LABS: Color, Urine Yellow (Yellow); Glucose, Dipstick 250 mg/dl (Normal); Ketone-Dipstick Negative (Negative); Leukocyte Esterase-Dipstick 25 /ul (Negative); Nitrite-Dipstick Negative (Negative); Occult Blood-Urine Negative /ul (Negative); Protein-Dipstick 15 mg/dl (Negative); Specific Gravity, Urine 1.015 (1.002-1.030); Urine Bilirubin Dipstick Negative (Negative); Urine Clarity Clear (Clear); Urine Urobilinogen Normal (Normal)
[2018-01-07 19:07] LABS: Squamous Epithelial Cells - UA 0-5 SEEN /hpf (5-10)
[2018-01-07 20:06] VITALS: BP 142/71; PULSE 84; RESP 22; O2SAT 97
--- NOTE | 2018-01-07 21:31 | ED.DCSUM_ITS ---
- ER Visit Summary Date of Service: 01/07/18 Chief Complaint: Abdominal pain History of Present Illness: The patient is a 63 F who reports that her primary care is the urgent care in [place]. She reports that she has diffuse abdominal pain began approximately 1 week ago. Is gradually gotten worse. Is a sharp, cramping pain. Is 10 out of 10 severity. Is worsened by movement and relieved by nothing. She reports she has been nausea and vomited once. No blood or emesis. Reports that she has had 6 episodes of diarrhea in the past 24 hours. No blood in her stools or black tarry stools. She is passing flatus. She reports that her urine is hot and she is having frequency. She denies any fever, chills. Physical Examination: Vitals: Stable. Afebrile. General: Well-nourished and well-developed. Head: Normocephalic atraumatic. Neck: Supple, no lymphadenopathy. No JVD. Nontender. Cardiovascular: Regular rate and rhythm. No murmurs. Respiratory: No respiratory distress. Clear to auscultation bilaterally. Abdominal: Soft, mild diffuse tenderness palpation with a slightly distended abdomen. Slightly hypoactive bowel sounds. No guarding, rebound, or peritoneal signs. Back: Nontender. Extremities: Nontender, no edema. Skin: Normal color, no rash. Neurologic: Alert and oriented ?3. Cranial nerves II through XII are intact. Normal strength and sensation. Psych: Normal affect. Test Results: CBC is marked for an H&H 11.1 34.3, platelets 115. Chem-7 is more for glucose of 344, BUN 19, creatinine 1.16, calcium 7.8. LFTs marked for an alk phos of 123, ALT of 160, and AST of 129. UA is negative. CT abdomen pelvis with p.o. contrast shows hepatosplenomegaly and no acute disease. Emergency Department Course and Treatment: An [facility] report was obtained which shows patient had 6 prescriptions for opiates in the past year. She has not had any since last July. She is treated the dose of morphine and Phenergan IV here. Treatment Plan: Patient will be discharged prescription for 12 oxycodone. Instructed to follow-up her primary care physician for further evaluation and treatment. Disposition: To home in improved and stable condition. Impression: 1. Abdominal pain, uncertain cause. 2. Type 2 diabetes mellitus with medication noncompliance. This note was generated with [employer] dictation software. It may contain incorrect words, spelling, and punctuation that were not noted in review of the chart prior to signing ED Disposition - Plan for ED Patient: Disposition: Home or Assisted Living Chief Complaint: Abd Pain Instructions: ED Abdominal Pain Unkn Cause Prescriptions: Oxycodone [Oxyir] 5 mg PO Q6H PRN PRN 5 Days #20 tablet PRN Reason: Pain Referrals: Doctor,Your [STAFF PHYSICIAN] - 3-5 Days if not improving
[2018-01-07 22:23] VITALS: BP 140/89; PULSE 76; RESP 18; O2SAT 96
--- NOTE | 2018-01-07 22:28 | NURSING ---
PT WAS DIFFICULT TO GET A RIDE HOME. HAD TO CALL 5 PEOPLE AND 2 [employer] TO TRY AND FIND A RIDE. FINALLY GOT THE PT A RIDE HOME. PT WAS UPSET THAT SHE WAS NOT ADMITTED TO THE HOSPITAL AND THAT WE DID NOT DO ANYTHING FOR HER ABDOMEN.
== END 2018-01-07 22:30 | disposition home or self-care (01) ==
PROVIDERS: Emergency Provider Emergency Medicine
DX: R10.9 Unspecified abdominal pain (principal); G89.29 Other chronic pain; E11.9 Type 2 diabetes mellitus without complications; Z91.14 Patient's other noncompliance with medication regimen; J44.9 Chronic obstructive pulmonary disease, unspecified; I10 Essential (primary) hypertension; M79.7 Fibromyalgia; F25.0 Schizoaffective disorder, bipolar type; Z79.899 Other long term (current) drug therapy; Z72.0 Tobacco use
CPT/HCPCS: 74176; 80048; 80076; 81001; 83690; 85025; 96361; 96374; 96375; 96376; 99285; J7030; A4216

== ENCOUNTER 2018-02-11 04:39 | Emergency (ER) | payer MEDICAID, SELFPAY ==
--- NOTE | 2018-02-11 04:42 | ED.VISSUMM ---
- ER Visit Summary Date of Service: 02/11/18 Chief Complaint: [Cardiopulmonary arrest] History of Present Illness: The patient is a 63 F [presents the emergency department via EMS]. Police responded to a medic alert and found patient in her bed unresponsive and not breathing. CPR was started and EMS was dispatched. On EMS arrival patient without a pulse and asystole. Patient had CPR in progress and had an IO established through which EMS gave 2 rounds of epinephrine. Patient continued to be in asystole. On arrival to the emergency department patient unresponsive with CPR in progress. Per EMS patient has a history of diabetes but not much else known as far as history. Physical Examination: [HEENT-atraumatic, black emesis about the mouth. Pupils fixed and dilated 6 mm. Cardiovascular-no cardiac sounds noted. No pulses palpated Lungs-no spontaneous respirations. Good breath sounds with bag valve mask bagging. Abdomen-slightly distended. Extremities-intact ?4 with an IO present in the left tibia. Neuro exam-GCS of 3] Test Results: [None indicated] Emergency Department Course and Treatment: [Patient was intubated with a 7.5 ET tube with good color change noted. Patient given 1 round of epinephrine. CPR continued and patient continued to be asystole. Patient downtime over 40 minutes. On cardiac ultrasound there is no cardiac activity. Time of was called at 4:34 AM.] Since daughter did call the ER as a neighbor had called her telling her that her mother was not doing well. I was informed that the patient had multiple medical conditions including stage IV cirrhosis of the liver and patient was supposed to be in a halfway which she left voluntarily recently. Daughter also states that the patient did have a DNR. I did inform the patient's daughter that the patient . Treatment Plan: [] Disposition: [] Impression: [Cardiopulmonary arrest ] This note was generated with [email or web address] dictation software. It may contain incorrect words, spelling, and punctuation that were not noted in review of the chart prior to signing ED Disposition - Plan for ED Patient: Chief Complaint: CPR Referrals: Care Physician,No Primary [Primary Care Provider] -
--- NOTE | 2018-02-11 04:52 | ED.DCSUM_ITS ---
- ER Visit Summary Date of Service: 02/11/18 Chief Complaint: [Cardiopulmonary arrest] History of Present Illness: The patient is a 63 F [presents the emergency department via EMS]. Police responded to a medic alert and found patient in her bed unresponsive and not breathing. CPR was started and EMS was dispatched. On EMS arrival patient without a pulse and asystole. Patient had CPR in progress and had an IO established through which EMS gave 2 rounds of epinephrine. Patient continued to be in asystole. On arrival to the emergency department patient unresponsive with CPR in progress. Per EMS patient has a history of diabetes but not much else known as far as history. Physical Examination: [HEENT-atraumatic, black emesis about the mouth. Pupils fixed and dilated 6 mm. Cardiovascular-no cardiac sounds noted. No pulses palpated Lungs-no spontaneous respirations. Good breath sounds with bag valve mask bagging. Abdomen-slightly distended. Extremities-intact ?4 with an IO present in the left tibia. Neuro exam-GCS of 3] Test Results: [None indicated] Emergency Department Course and Treatment: [Patient was intubated with a 7.5 ET tube with good color change noted. Patient given 1 round of epinephrine. CPR continued and patient continued to be asystole. Patient downtime over 40 minutes. On cardiac ultrasound there is no cardiac activity. Time of was called at 4:34 AM.] Since daughter did call the ER as a neighbor had called her telling her that her mother was not doing well. I was informed that the patient had multiple medical conditions including stage IV cirrhosis of the liver and patient was supposed to be in a skilled nursing which she left voluntarily recently. Daughter also states that the patient did have a DNR. I did inform the patient's daughter that the patient . Treatment Plan: [] Disposition: [] Impression: [Cardiopulmonary arrest ] This note was generated with [employer] dictation software. It may contain incorrect words, spelling, and punctuation that were not noted in review of the chart prior to signing ED Disposition - Plan for ED Patient: Chief Complaint: CPR Referrals: Care Physician,No Primary [Primary Care Provider] -
--- NOTE | 2018-02-11 06:24 | ED.RN ---
DAUGHTER,NATIVIDAD AT THE BEDSIDE.INFO FAXED TO [facility] [employer].
--- NOTE | 2018-02-11 07:08 | ED.RN ---
0600 DAUGHTER,NATIVIDAD STATED SHE DID NOT WANT AN AUTOPSY.SHE STATED HER MOTHER'S DOCTOR IS MATTHIAS THOMAS.PAGED DR THOMAS. 0700 DR CHRISTOPHER SPOKE TO MD MCKENNA FOR DR THOMAS AND HE WAS INSTRUCTED TO PLACE PAGE TO [employer] FOR HER TO SIGN CERTICATE. 0715 [employer] CALLED BACK AND STATED THAT THE PT IS KNOWN TO THEM AND SHE BELIEVES DR IRIZARRY WILL BE COMFORTBALE SIGNING THE CERTIFICATE,BUT SHE NEEDED TO TOUCH BASE WITH HIM FIRST.
== END 2018-02-11 06:00 ==
LOC: ED 04:45
PROVIDERS: Emergency Provider Emergency Medicine
DX: I46.9 Cardiac arrest, cause unspecified (principal); K74.60 Unspecified cirrhosis of liver; E11.9 Type 2 diabetes mellitus without complications; Z79.899 Other long term (current) drug therapy; Z66 Do not resuscitate
CPT/HCPCS: 31500; 92950; 99291; J7030; A4216